=== PATIENT | male | born 1965 ===

== ENCOUNTER 2018-04-30 17:39 | Inpatient (IN) | payer OTHER ==
[~2018-04-30] VITALS: Ht 185.4 cm; Wt 127.9 kg
[2018-04-30] MEDS ORDERED: CATAPRES0.1 MG (18:03)
[2018-04-30] MEDS ORDERED: GLUCOTROL10 MG (18:03)
[2018-04-30] MEDS ORDERED: NORVASC5 MG (18:03)
[2018-04-30] MEDS ORDERED: FORTAMET1000 MG (18:03)
--- NOTE | 2018-04-30 18:06 | NUR ---
PTE REFIERE CELULITIS EN MARY ALICE CHARLIE SE LIZ S/V Y SE UBICA EN AREA DE OBSERVACIOPN
--- NOTE | 2018-04-30 19:01 | NUR ---
PTE ALERTA Y ORIENTADO X3, SE LE LIZ MUESTRAS DE LAB. [facility] ORDEN MEDICA BAJO MEDIDAS ASEPTICAS. SE CANALIZA AREA PETRA DE EDEMA Y DE ENROJECIMIENTO.SE LE ADMINISTRA MEDICAMENTOS MILAD ORDEN MEDICA Y SE EDUCA SOBRE TRATAMIENTO MEDICO.
[2018-05-03] MEDS ORDERED: DOXYCYCLINE HY100 M2 PO (17:16)
== END 2018-05-03 17:24 | DRG 638 ==
LOC: ER 17:39 → MEDJ 22:30 → SEC-K 22:30 → MEDJ 23:58 → MEDI 05-01 18:42 → MEDJ 05-01 20:55 → MEDI 05-02 18:34
PROVIDERS: ADMIT Internal Medicine
PROC: B54DZZZ Ultrasonography of Bilateral Lower Extremity Veins (ICD-10-PCS; principal; 2018-05-02)
DX: E11.628 Type 2 diabetes mellitus with other skin complications (principal); L03.116 Cellulitis of left lower limb; Z79.4 Long term (current) use of insulin; D72.828 Other elevated white blood cell count; E11.51 Type 2 diabetes mellitus with diabetic peripheral angiopathy without gangrene; I87.2 Venous insufficiency (chronic) (peripheral)